=== PATIENT | male | born 1955 | race Caucasian/White ===

== ENCOUNTER 2024-08-21 09:30 | Day surgery (SDC) | payer OTHER ==
[2024-08-14 16:07] VITALS: BP 110/72
[~2024-08-21] VITALS: Ht 167.6 cm; Wt 81.0 kg
--- NOTE | ~2024-08-21 | OR ---
[facility] [address] [place], [place] [address] Draft DATE OF OPERATION: 08/21/2024 SURGEON: Abhay Quiros DO PREOPERATIVE DIAGNOSIS: Colon cancer screening with history of colon polyps. POSTOPERATIVE DIAGNOSES: 1. Colon cancer screening with history of colon polyps with colon polyps at 80 cm x2. 2. 3 to 4 cm colonic mass at 75 cm. PROCEDURES PERFORMED: 1. Colonoscopy with biopsy of two polyps at 80 cm. 2. Multiple biopsies and tattooing of colonic mass at 75 cm. ANESTHESIA: IV sedation. EBL: Minimal. DRAINS: None. COMPLICATIONS: None. DESCRIPTION OF PROCEDURE: The patient was brought to the GI lab, was placed in the supine position. After induction of IV sedation, a digital rectal exam was performed. The prostate was essentially unremarkable. No rectal abnormalities were appreciated. The Olympus video colonoscope was then introduced into the rectum and under direct visualization, the scope was advanced through the rectosigmoid, sigmoid colon, descending colon, transverse colon, into the ascending colon and the cecum, where general exploration was carried out. The ascending colon and cecum were essentially unremarkable. No intrinsic or extrinsic masses were noted. The scope was brought back past the hepatic flexure into the transverse colon at approximately 80 cm two flat sessile polyps were identified. They were biopsied with cold forceps. The specimen was passed off the field for pathologic review. On withdrawing the scope at approximately 5 cm, a large 3 to 4 cm broad-based colonic mass was noted. It was multilayered with several layers of PATIENT NAME: FAISAL HOWELL OPERATIVE REPORT DATE OF : 57 REPORT #: [id number] PHYSICIAN: ABHAY QUIROS DO PCP: OTHER PCP REPORT IS CONFIDENTIAL AND NOT TO BE RELEASED WITHOUT AUTHORIZATION [facility] [address] [place], [place] [address] Draft protrusion. The colonic mass at 75 cm was attempted. A snare was placed across the base mass to biopsy, but the snare could not be closed due to the firm nature of the mass and the size. Then, it was decided and the snare was removed and multiple biopsies with cold biopsy forceps were then performed both on the base as well as through the body in the anterior portion of the colonic mass. These were all passed off the field for pathologic review. The mass base was then tattooed with methylene blue and through injection needle under direct visualization. The submucosal surface was noted to be staying well. No excessive bleeding was noted. The scope was then brought back further to the descending colon, which was unremarkable. No extrinsic or intrinsic masses were appreciated. The scope was brought back into the sigmoid colon. No extrinsic or intrinsic masses noted or at least ulcerations were noted. Rectosigmoid was unremarkable. The scope was then withdrawn. The patient tolerated procedure well and went to recovery room in satisfactory condition. DO RICARDA Glass/DALE /[id number] Copies: ~ PATIENT NAME: FAISAL HOWELL OPERATIVE REPORT DATE OF : 57 REPORT #: [id number] PHYSICIAN: ABHAY QUIROS DO PCP: OTHER PCP REPORT IS CONFIDENTIAL AND NOT TO BE RELEASED WITHOUT AUTHORIZATION
[~2024-08-21 09:30] MED LIST: AMLODIPINE BESY10 MG PO; DEXTROAMP-AMPHE10 MG PO; ESOMEPRAZOLE MA20 MG PO; HYDROCHLOROTHIA25 MG PO; IBLOOD GLUCOSE TEST STRIP 1 EA TEST VI PRN; LACTATED RINGER'S 1,000 ML IV SCH; LIDOCAINE HCL 1% 5 ML SDV INJ ONE; LIPITOR20 MG PO; LIRAGLUTID0.6 MG/0.1 SUB-Q; LOSARTAN POTAS100 MG PO
[2024-08-21 09:41] VITALS: BP 127/79
[2024-08-21] MEDS ORDERED: FISH OIL 1,0001 EAC6 PO (09:44)
[2024-08-21] MEDS ORDERED: B COMPLEX1 EACH PO (09:44)
[2024-08-21] MEDS ORDERED: VITAMIN D310 MC4 PO (09:44)
[2024-08-21] MEDS ORDERED: TURMERIC500 M2 PO (09:44)
[2024-08-21] MEDS ORDERED: ECHINACEA80 MG PO (09:45)
[2024-08-21] MEDS ORDERED: ZINC30 M1 PO (09:45)
[2024-08-21] MEDS ORDERED: ECHINACEA65 MG PO (09:45)
[2024-08-21] MEDS ORDERED: COQ-10100 MG PO (09:45)
[2024-08-21] MEDS ORDERED: GLUCAGON,HUMAN RECOMBINANT 1 MG/ML VIAL ONE (10:55)
--- NOTE | 2024-08-21 12:09 | NUR ---
08/21/24 1209 Rosina Smith 1203: PT ARRIVES TO PACU FROM ENDO AWAKE AND ALERT. NO COMPLAINTS OF PAIN OR NAUSEA.
[2024-08-21 12:32] VITALS: BP 118/74
--- NOTE | 2024-08-26 14:34 | PATH ---
[facility] [address] [facility] [place], [place] [address] Signed SPECIMEN(S): A COLON POLYP AT 80 CM SPECIMEN(S): B COLON POLYP AT 75 CM SPECIMEN SOURCE: A. COLON POLYP AT 80 CM B. COLON POLYP AT 75 CM CLINICAL HISTORY: Colon screening-per history of colon polyps approximately 10 years ago, colon mass at 75 cm FINAL PATHOLOGIC DIAGNOSIS: A. 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 B. Colon polyp at 75 cm - Low-grade neuroendocrine tumor (carcinoid), 5 mm greatest microscopic dimension. See comment. COMMENT: Immunohistochemical stains are performed on A1 and B1, showing positivity in the neoplastic cells for syaptophysin and chromogranin, with a Ki-67 proliferation index of 1-2%. These results confirm the histologic diagnosis. 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 AMB MICROSCOPIC EXAMINATION: Histologic sections of all submitted blocks are examined by light microscopy. These findings, together with the gross examination, support the pathologic diagnosis. GROSS DESCRIPTION: A. The specimen, labeled and designated "Howell, colon polyp at 80 cm," is received in formalin and consists of three puente soft tissue fragments, ranging from 0.3-0.8 cm. Entirely submitted in (A1). B. The specimen, labeled and designated "Howell, colon polyp at 75 cm," is received in formalin and consists of eight puente soft tissue fragments, ranging from 0.2-0.5 cm. Entirely submitted in (B1). VB (under the direct supervision of a pathologist) PATIENT NAME: FAISAL HOWELL PATHOLOGY DATE OF : 57 REPORT #: [id number] PHYSICIAN: FER LEMUS PCP: OTHER PCP REPORT IS CONFIDENTIAL AND NOT TO BE RELEASED WITHOUT AUTHORIZATION [facility] [address] [place], [place] [address] Signed The Gross Description was prepared using a voice recognition system. The report was reviewed for accuracy; however, sound-alike word errors, addition and/or deletions may occur. If there is any question about this report, please contact Client Services. ADDITIONAL NOTES: Immunohistochemical and/or in situ hybridization studies if performed in this case included appropriate positive controls that reacted as expected. This test was developed and its performance characteristics determined by [email or web address]. It has not been cleared or approved by the U.S. Food and Drug Administration. The FDA has determined that such clearance or approval is not necessary. This test is used for clinical purposes. It should not be regarded as investigational or for research. [email or web address] is certified under the Clinical Laboratory Improvement Amendments of 1988 (CLIA) as qualified to perform high complexity clinical laboratory testing. PERFORMING LABORATORY: Technical component was performed by [email or web address], [address] [place] [id number] (CLIA# [id number]). Professional interpretation was performed by [facility] [address] [place] [id number] Diagnostician: Sunshine Corbett MD Pathologist Electronically Signed 08/26/2024 Copies: ~ PATIENT NAME: FAISAL HOWELL PATHOLOGY DATE OF : 57 REPORT #: [id number] PHYSICIAN: FER PATHOLOGY PCP: OTHER PCP REPORT IS CONFIDENTIAL AND NOT TO BE RELEASED WITHOUT AUTHORIZATION
== END 2024-08-21 12:43 | disposition home or self-care (01) ==
LOC: OPS 09:30 → DS 09:30 → OPS 11:00 → DS 11:00 → OPS 12:43
PROVIDERS: ATTEND Surgery
PROC: 3E0H8KZ Introduction of Other Diagnostic Substance into Lower GI, Via Natural or Artificial Opening Endoscopic (ICD-10-PCS; 2024-08-21)
PROC: 0DBL8ZX Excision of Transverse Colon, Via Natural or Artificial Opening Endoscopic, Diagnostic (ICD-10-PCS; principal; 2024-08-21 11:00)
DX: Z12.11 Encounter for screening for malignant neoplasm of colon (principal); D3A.0 Benign carcinoid tumors; Z86.0100 Personal history of colon polyps, unspecified; Z83.719 Family history of colon polyps, unspecified; I10 Essential (primary) hypertension; Z79.899 Other long term (current) drug therapy
CPT/HCPCS: 00811; J1610; J2704; J7121